=== PATIENT | male | born 1985 | race Caucasian/White ===

== ENCOUNTER 2023-03-28 09:37 | Emergency (ER) | payer OTHER, SELFPAY ==
--- NOTE | ~2023-03-28 | XR_ITS ---
EXAMINATION: XR chest 1V portable 03/28/2023 10:06 INDICATION: Chest pain PROCEDURE: AP portable chest COMPARISON: No prior studies for comparison. FINDINGS: The lungs are clear. The cardiomediastinal silhouette is within normal limits. There are no pleural effusions. There is no pneumothorax suspected. IMPRESSION: 1: NO ACUTE CARDIOPULMONARY DISEASE. Reviewed, dictated and finalized at location B. TESTER
[2023-03-28 09:41] VITALS: BP 155/97; PULSE 64; RESP 16; TEMP 36.6; O2SAT 100
--- NOTE | 2023-03-28 09:44 | ECG_ITS ---
Measurements Intervals [place] Rate: 53 P: 62 TN: 169 QRS: 76 QRSD: 108 T: 47 QT: 400 QTc: 377 Interpretive Statements SINUS BRADYCARDIA WITH SINUS ARRHYTHMIA NO PREVIOUS ECG AVAILABLE FOR COMPARISON Electronically Signed On 03-28-2023 12:09:01 DIP STAND LOADER by Sherice Masters M.D.
[2023-03-28 09:50] VITALS: PULSE 61
[2023-03-28] MEDS: ASPIRIN 81 MG CHEWABLE TABLET 324 MG PO (09:55)
[2023-03-28 09:56] LABS: Basophils Absolute Auto 0.1 K/mm3 (0.0-0.1); Basophils Percent Auto 1.3 % (0.2-1.2); Eosinophils Absolute Auto 0.5 K/mm3 (0-0.3); Eosinophils Percent Auto 8.8 % (0-4.4); Hemoglobin 15.7 g/dL (14.0-18.0); Immature Granulocyte Absolute 0.01 K/mm3 (0.00-0.031); Immature Granulocyte Percent A 0.2 % (0-0.5); Lymphocytes Absolute Auto 1.53 K/mm3 (0.9-3.2); Lymphocytes Percent Auto 29.1 % (18.3-44.2); Mean Corpuscular HGB Conc 33.4 g/dl (32-36); Mean Corpuscular Hemoglobin 28.5 pg (26-34); Mean Corpuscular Volume 85.5 fl (80-100); Mean Platelet Volume 9.2 fl (7.4-10.4); Monocytes Absolute Auto 0.3 K/mm3 (0.1-0.6); Monocytes Percent Auto 5.9 % (2.6-8.5); Neutrophils Absolute Auto 2.9 K/mm3 (1.3-6.7); Neutrophils Percent Auto 54.7 % (45.5-73.1); Platelet Count Result 229 k/mm3 (150-375); Red Cell Distribution Width 12.1 % (11.5-14.5); White Blood Count 5.3 K/mm3 (4.5-10.0)
--- NOTE | 2023-03-28 10:03 | ED.CHESTPAIN ---
HPI - Chest Pain General Chief Complaint: Chest Pain Stated Complaint: had a heart attack this morning Time Seen by Provider: 03/28/23 09:43 History of Present Illness HPI narrative: 37-year-old male presenting to the emergency department for evaluation of chest pain. Patient reports that he woke up this morning with intense substernal chest pain that lasted about 15 seconds. Patient states as the pain was resolving it did radiate to his bilateral jaws. Patient reports over the next 15-20 minutes he did have some mild chest aching that ultimately resolved. Patient reports when he was ambulating he did have some associated lightheaded and dizziness. Patient denies any current chest pain. patient also does describe multiple food allergies and intermittent esophageal spasm. Patient states he does not often follow-up with physicians but states he has no prior history of coronary artery disease. Patient reports no exertional chest pain when working out. Patient has no prior history of PE or DVT. Related Data Allergies Allergy/AdvReac Type Severity Reaction Status Date / Time No Known Allergies Allergy Verified 03/28/23 09:50 Review of Systems Review of Systems: All systems reviewed & are unremarkable except as noted in HPI and below Exam Narrative: APPEARANCE: Well appearing, no pain, no distress, well-nourished. HEAD: normocephalic, atraumatic. EYES: PERRLA/EOMI, conjunctivae clear. NOSE: Normal no drainage EARS:TMS clear with good light reflex. THROAT: Pharynx clear, no exudate. NECK: Supple. No adenopathy, no masses. RESPIRATORY: Airway patent, respirations nonlabored. Clear to auscultation bilaterally, no rales, rhonchi, wheezing. CARDIOVASCULAR: Regular rate and rhythm without murmurs rubs or gallops. ABDOMINAL: Soft, nontender, nondistended, normal bowel sounds MUSCULOSKELETAL: Moves all extremities. Strength/ROM intact, No edema, No calf tenderness. NEURO: Alert. Cranial nerves II through XII intact. Grossly intact SKIN: Warm, dry. Normal Color Course Course Emergency Course: 57-year-old male presenting to the ED for evaluation of substernal chest pain. Patient is afebrile with no leukocytosis and a stable hemoglobin. Patient's D-dimer was negative. Patient had negative serial troponins. No significant abnormalities on his CMP. Chest x-ray shows no acute cardiopulmonary abnormality. EKG showed sinus bradycardia with sinus arrhythmia with no evidence for acute STEMI. patient describes symptoms that sound like eosinophilic esophagitis. The patient has no significant cardiac history patient had negative serial EKGs and negative serial troponins. Patient was updated on the results of his workup patient was comfortable the plan for discharge and close follow-up with primary care physician for additional outpatient cardiac testing and with GI for further workup. Vital Signs Vital signs: Vital Signs Temperature 97.9 F 03/28/23 09:41 Pulse Rate 64 03/28/23 09:41 Respiratory Rate 16 03/28/23 09:41 Blood Pressure 155/97 H 03/28/23 09:41 Pulse Oximetry 100 03/28/23 09:41 Temperature 97.9 F 03/28/23 09:41 Pulse Rate 58 L 03/28/23 13:47 Respiratory Rate 19 03/28/23 13:47 Blood Pressure 130/79 03/28/23 13:47 Pulse Oximetry 97 03/28/23 13:47 MDM - Chest Pain Differential Diagnosis Differential diagnosis: Likely pneumothorax, unstable angina pectoris, atypical chest pain, costochondritis, chest pain, biliary colic and other Lab Data Attestation: I reviewed the patient's lab results. 03/28/23 09:52 03/28/23 09:52 Labs: Lab Results 03/28/23 03/28/23 Range/Units 09:52 12:39 WBC 5.3 (4.5-10.0) K/mm3 RBC 5.50 (4.6-6.20) M/mm3 Hgb 15.7 (14.0-18.0) g/dL Hct 47.0 (42.0-52.0) % MCV 85.5 (80-100) fl MCH 28.5 (26-34) pg MCHC 33.4 (32-36) g/dl RDW 12.1 (11.5-14.5) % Plt Count 229 (150-375) k/mm3 MPV
[2023-03-28 10:07] LABS: Alanine Aminotransferase 25 U/L (6-50); Albumin Level 4.6 g/dL (3.5-5.1); Alkaline Phosphatase 65 U/L (38-126); Anion Gap 7 mmol/L (8-16); Aspartate Amino Transferase 33 U/L (17-59); Bilirubin,Total 0.9 mg/dL (0.2-1.3); Blood Urea Nitrogen 16 mg/dL (9-20); Carbon Dioxide 31 mmol/L (22-30); Chloride 102 mmol/L (98-107); Estimated CRCL calculation 85 ml/min; Estimated Glomerular Filt Rate > 60; Glucose 94 mg/dL (65-110); Potassium 4.2 mmol/L (3.4-5.0); Sodium 140 mmol/L (137-145)
[2023-03-28 10:18] LABS: Troponin I < 0.012 ng/mL (0.000-0.034)
[2023-03-28 10:45] LABS: D Dimer < 0.27 ug/mL (<0.48)
[2023-03-28 11:04] VITALS: PULSE 61; RESP 12; O2SAT 98
[2023-03-28 12:06] VITALS: BP 119/68; PULSE 51; RESP 12; O2SAT 100
[2023-03-28 13:05] LABS: Troponin I < 0.012 ng/mL (0.000-0.034)
[2023-03-28 13:13] VITALS: BP 130/79; PULSE 54; RESP 17; O2SAT 99
--- NOTE | 2023-03-28 13:21 | ECG_ITS ---
Measurements Intervals [place] Rate: 50 P: 51 ID: 160 QRS: 77 QRSD: 100 T: 40 QT: 424 QTc: 389 Interpretive Statements SINUS BRADYCARDIA NO PREVIOUS ECG AVAILABLE FOR COMPARISON Electronically Signed On 03-28-2023 15:07:44 TIPPLE OILER by Jerry Garrison M.D.
[2023-03-28 13:47] VITALS: BP 130/79; PULSE 58; RESP 19; O2SAT 97
== END 2023-03-28 13:48 | disposition home or self-care (01) ==
PROVIDERS: Emergency Provider Emergency Medicine
DX: R07.2 Precordial pain (principal); K22.4 Dyskinesia of esophagus; R00.1 Bradycardia, unspecified
CPT/HCPCS: 36415; 71045; 80053; 84484; 85025; 85380; 93005; 99284; A9270

== ENCOUNTER 2023-05-23 07:02 | Outpatient (NON) | payer OTHER, SELFPAY | END 2023-05-23 07:03 | disposition home or self-care (01) | PROVIDERS: Visit Provider Internal Medicine Gastroenterology | DX: T78.1XXA Other adverse food reactions, not elsewhere classified, initial encounter (principal) | CPT/HCPCS: 88305 ==

== ENCOUNTER 2023-05-23 07:17 | Day surgery (SDC) | payer OTHER, SELFPAY ==
[2023-05-11 15:27] VITALS: BMI 27.8
[2023-05-14 09:53] VITALS: BMI 26.4
[2023-05-23 08:45] VITALS: BP 118/77; PULSE 69; RESP 16; TEMP 36.3; O2SAT 98; BMI 27.8
[2023-05-23] MEDS: LACTATED RINGERS 1,000 ML 150 ML IV CONT (09:03)
--- NOTE | 2023-05-23 09:16 | P.HP_ITS ---
History of Present Illness History of Present Illness Consent: Risks, benefits, and alternatives have been discussed and questions answered. Patient agrees to proceed with procedure. Chief complaint: Other Chest Pain, Gerd w/o Esophagitis Narrative: Moncho Yoder is a 37 year old male presents for EGD. Patient reports having had chest pain since several months ago that occurred on 1 occasion. This prompted him to go to the ER. The ER doctor recommended an EGD. Patient denies any dysphagia. He has occasional discomfort after eating fruits and vegetables. On occasion is described his mouth swelling. He feels substernal discomfort. Most recently has resolved 20mg p.o. daily. He is uncertain if this is alleviated the pain as he now voids fruits and vegetables. He has not seen an body straightener but does not have a primary care doctor. EGD exclude esophagitis. Review of Systems Review of Systems: Review of systems noncontributory. [facility] Past Medical History Medical History (Updated 05/09/23 @ 11:03 by Darlene Calvo APRN) Atypical chest pain Gastrointestinal food sensitivity GERD (gastroesophageal reflux disease) Social History Social History Smoking status: Never smoker Alcohol intake: current Substance use: never Substance use type: does not use Living arrangements: with family Spiritual care concerns: No Meds Home Medications and Allergies Home Medications Medication Instructions Recorded Confirmed Type omeprazole 20 mg capsule,delayed 20 mg PO DAILY 14 days #14 caps 03/28/23 05/23/23 Rx release Allergies Allergy/AdvReac Type Severity Reaction Status Date / Time No Known Allergies Allergy Verified 05/23/23 08:37 Vital Signs Vital Signs - 24 hr 05/23/23 08:45 Temperature 97.3 F L Pulse Rate 69 Respiratory Rate 16 Blood Pressure 118/77 Pulse Oximetry 98 Oxygen Delivery Room Air Exam Narrative: Exam reveals patient to be alert. Vital signs stable. HEENT exam is unremarkable. Patient is anicteric. Lungs are clear to auscultation and to percussion. Heart is without murmur or extra sounds. Abdominal exam bowel sounds are present soft nontender with no hepatosplenomegaly. Assessment and Plan Assessment and plan (1) Atypical chest pain: Code(s): R07.89 - Other chest pain Status: Acute Assessment and Plan: Patient has atypical chest pain. His uncertain if this is related to GE reflux. Patient is currently on a trial of omeprazole. EGD will formed as requested but patient has already been treated with PPI endoscopy. Patient is concerned about food allergies and I would recommend get established with primary care doctor and perhaps the an body straightener (2) Gastrointestinal food sensitivity: Code(s): T78.1XXA - Other adverse food reactions, not elsewhere classified, initial encounter Status: Acute Assessment and Plan: It has been advised that patient see an body straightener because of concerns over food allergies. I have informed the patient this is unusual and atypical but would be best tested by an body straightener.
--- NOTE | 2023-05-23 09:18 | P.PNAN_ITS ---
Anes - Initial Pre Proc Eval Procedure: Operation Date: 05/23/23 10:00 Proposed Procedures p Esophagogastroduodenoscopy - Marty Marie MD Date/Time: 05/23/23 09:18 Surgeon: Marty Marie MD Pre Op Diagnosis: Other Chest Pain, Gerd w/o Esophagitis Patient Data Age: 37 Gender: M Height: 1.8 m Weight: 90.6 kg Last Vital Signs Temp 36.3 C L 05/23/23 08:45 Pulse 69 05/23/23 08:45 Resp 16 05/23/23 08:45 BP 118/77 05/23/23 08:45 Pulse Ox 98 05/23/23 08:45 O2 Del Method Room Air 05/23/23 08:45 Allergies Allergy/AdvReac Type Severity Reaction Status Date / Time No Known Allergies Allergy Verified 05/23/23 08:37 Home Medications Medication Instructions Recorded Confirmed Type omeprazole 20 mg capsule,delayed 20 mg PO DAILY 14 days #14 caps 03/28/23 05/23/23 Rx release Patient hx anesthesia problems: none Family hx anesthesia problems: none Results Review: All pre-operative results and documents have been reviewed as part of the pre- operative evaluation. [facility] Past Medical History Medical History (Updated 05/09/23 @ 11:03 by Darlene Calvo, NEVA) Atypical chest pain Gastrointestinal food sensitivity GERD (gastroesophageal reflux disease) Social History Social History Smoking status: Never smoker Alcohol intake: current Substance use: never Substance use type: does not use Living arrangements: with family Spiritual care concerns: No Anes - Eval Final PreProcedure Day of Procedure 05/23/23 09:18 Patient weight: overweight Heart: regular rate and rhythm Lungs: clear to auscultation Airway: Mallampati scale class II Neurological: alert and oriented Last oral intake: >/= 8 hours ASA classification: II Emergent: no Anesthetic plan: proceed Anesthesia type and monitoring: general GIVS and standard monitoring Results Review: All pre-operative results and documents have been reviewed as part of the pre- operative evaluation. Informed Consent: The patient's anesthetic plan and its attendant risks and benefits were discussed with the patient/family/POA. Questions were solicited and answers provided to the satisfaction of the patient/family/POA.
[2023-05-23 10:05] VITALS: BP 101/70; PULSE 73; RESP 16; O2SAT 98
[2023-05-23 10:15] VITALS: BP 100/71; PULSE 80; RESP 16; O2SAT 99
[2023-05-23 10:25] VITALS: BP 117/75; PULSE 76; RESP 16; O2SAT 99
--- NOTE | 2023-05-23 11:24 | WPDANESPN ---
Anes - Prog Note Post-Op Date/Time: 05/23/23 11:24 Cardiovascular status: normal Respiratory status: normal Airway patency: baseline Mental status: baseline Post-Op hydration status: normal Vital Signs: Last Vital Signs Temp 36.3 C L 05/23/23 08:45 Pulse 76 05/23/23 10:25 Resp 16 05/23/23 10:25 BP 117/75 05/23/23 10:25 Pulse Ox 99 05/23/23 10:25 O2 Del Method Room Air 05/23/23 10:25 Pain Score (VAS): 0 I/O: Intake & Output 05/22/23 05/23/23 05/23/23 23:59 07:59 15:59 Intake Total 700 Balance 700 Post-procedural complaints: none Patient Feedback: Patient satisfied with anesthetic care. Other Findings: Patient vital signs back to baseline. Patient denies nausea and vomiting. Patient's pain under control. Patient OK for discharge.
== END 2023-05-23 10:45 | disposition home or self-care (01) ==
PROVIDERS: Visit Provider Internal Medicine Gastroenterology
PROC: 0DJ08ZZ Inspection of Upper Intestinal Tract, Via Natural or Artificial Opening Endoscopic (ICD-10-PCS; CPT 43235; principal; 2023-05-23 10:00)
DX: R07.89 Other chest pain (principal)
CPT/HCPCS: 43239

== ENCOUNTER 2024-06-30 10:58 | Outpatient (CLI) | payer OTHER, SELFPAY ==
--- NOTE | ~2024-06-30 | XR_ITS ---
XR knee RT min 4V Ordering provider: Michel Narayan DO History: . M17.0 - Bilateral primary osteoarthritis of knee . Comparison: None. FINDINGS: BONES: No acute fracture or dislocation. JOINT SPACES: Normal. SOFT TISSUES: Normal. IMPRESSION: No acute osseous abnormality right knee. Reviewed, dictated and finalized at location A.
--- NOTE | ~2024-06-30 | XR_ITS ---
XR knee LT min 4V Ordering provider: Michel Narayan DO History: . M17.0 - Bilateral primary osteoarthritis of knee . Comparison: None. FINDINGS: BONES: No acute fracture or dislocation. JOINT SPACES: Normal. SOFT TISSUES: Ossification in the left soft tissues adjacent to the distal femur. IMPRESSION: No acute osseous abnormality left knee. Myositis ossificans seen in the distal femur area on the left side. Proper imaging of the femur is ad vised for confirmation Reviewed, dictated and finalized at location A. IMPRESSION: No acute osseous abnormality left knee. Myositis ossificans seen in the distal femur area on the left side. Proper imag ing of the femur is advised for confirmation
== END 2024-06-30 10:59 | disposition home or self-care (01) ==
PROVIDERS: PCP Internal Medicine; Visit Provider Internal Medicine
DX: M17.0 Bilateral primary osteoarthritis of knee (principal)
CPT/HCPCS: 73564

== ENCOUNTER 2024-07-16 09:20 | Outpatient (CLI) | payer OTHER, SELFPAY ==
--- NOTE | ~2024-07-16 | MR_ITS ---
EXAMINATION: MR knee RT wo con DATE: 07/16/2024 09:46 INDICATION: Primary osteoarthritis of the right knee TECHNIQUE: Magnetic resonance imaging (MRI) of the right knee was performed without intravenous contr ast. Sequences included coronal PD-weighted FSE, coronal PD-weighted FS FSE, sagittal T2-weighted FS E, sagittal PD-weighted FS FSE and axial PD weighted fat saturated FSE. COMPARISON: None. FINDINGS: Medial compartment: Complex medial meniscal tear which involves the superior and inferior articular surfaces at a middle thirds of the body and posterior horn. There are some shallow chondral surface irregularity along the central weightbearing medial femoral condyle. Lateral compartment: Lateral meniscus is normal. Articular cartilage is normal. Patellofemoral compartment: Partial-thickness chondral ulceration and deep fissuring without degenerative subchondral changes at the medial half of the lateral trochlea, the trochlear groove and at the inferior aspect of the media l trochlea. Patellar cartilage is normal. Ligaments and tendons: Anterior and posterior cruciate ligaments are normal. The medial collateral ligament and fibular xander ateral ligament complex are normal. The extensor mechanism is normal. The visualized medial and later al hamstring tendons as well as the iliotibial band are normal. Fluid: Physiologic amount of fluid in the joint space. No loose osteochondral bodies identified. Osseous/other: Normal marrow signal. No fracture or pathologic marrow replacing process. IMPRESSION: 1. Complex medial meniscal tear. 2. 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 2. Mild medial compartment osteoarthritis with moderate grade chondromalacia along the central weight bearing medial femoral condyle. Reviewed, dictated and finalized at location B. IMPRESSION: 1. Complex medial meniscal tear. 2. Mild osteoarthritis in the patellofemoral compartment with moderate to high- grade chondromalacia in the trochlea. 2. Mild medial compartment osteoarthritis with moderate grade chondromalacia al alan the central weightbearing medial femoral condyle.
== END 2024-07-16 09:21 | disposition home or self-care (01) ==
LOC: GOSHIMG 09:20
PROVIDERS: PCP Internal Medicine; Visit Provider Internal Medicine
DX: M17.0 Bilateral primary osteoarthritis of knee (principal); S83.231A Complex tear of medial meniscus, current injury, right knee, initial encounter; X58.XXXA Exposure to other specified factors, initial encounter
CPT/HCPCS: 73721

== ENCOUNTER 2025-02-24 16:02 | Outpatient (CLI) | payer OTHER, SELFPAY ==
--- OUTSIDE RECORDS SUMMARY | 2023-10-06 15:30 | XMS_ITS ---
Author Organization [facility] [employer] [facility] [place] ([address]) Address [address] [facility] [address] [place] [address] Care Team Providers Care Change Management Director Name Role Phone Michel Narayan Primary Care Provider Unavailab le Loly Oneal Unavailable [phone] ZZ-Migration, Provider Unavailable Unavailab le [facility]ISIT [facility] Encounter Medications Medication SIG (Take, Route, Frequency, Duration) Notes Start Date End Date Status Naomi Allergy 60 MG 1 tab(s) orally 2 times a day Active EPINEPHrine 0.3 MG DIRECTED INTRAMUSCULARLY ONCE *Please review and pick correct strength-formulati on from Medispan options. If intended option is not shown, discontinue and re-order from Quick Search* Active Vitamin D3 1250 MCG 1 CAP(S) ORALLY ONCE A WEEK *Please review and pick correct strength-formulati on from Medispan options. If intended option is not shown, discontinue and re-order from Quick Search* Active NASAL WASHES N/A DIRECTED INTRANASALLY NEEDED; Duration: 30 DAYS *Please review for potential replacement for e-prescription and drug interaction check* 09/12/2023 Active Encounters Encounter Location Date Provider Diagnosis MEG - [address] [place] [address] 10/06/2023 Provider ZZ-Migration Allergic rhinitis due to pollen J30.1 and Other adverse food reactions, not elsewhere classified, initial encounter T78.1XXA Assessments Encounter Date Diagnosis (ICD Code) Assessment Notes Treatment Notes Treatment Clinical Notes Section Notes 10/06/2023 Allergic rhinitis due to pollen (ICD-10 - J30.1) 10/06/2023 Other adverse food reactions, not elsewhere classified, initial encounter (ICD-10 - T78.1XXA) Plan Of Treatment Medication Medication Name Sig Start Date Stop Date Notes Naomi Allergy 60 MG 1 tab(s) orally 2 times a day EPINEPHrine 0.3 MG DIRECTED INTRAMUSCULARLY ONCE *Please review and pick correct strength-formulation from Medispan options. If intended option is not shown, discontinue and re-order from Quick Search* NASAL WASHES N/A DIRECTED INTRANAS ALLY NEEDED; Duration: 30 DAYS 09/12/2023 *Please review for potential replacement for e-prescription and drug interaction check* Progress Notes * Moncho LANGDOB:1985 (39 yo M)Acc No.[id number]:10/06/2023 Patient: Moncho RENTERIA Provider: Amarjit Bob :1985 A ge:38 Y S ex:Male Date:10/06/2023 Address:[address] [place] [address] , [facility] Pcp:Michel Narayan Subjective: * Chief Complaints: * 1 . [facility] To Med[facility]pan Conversion Encounter. * Medical History: * Medications: T aking Vitamin D3 1250 MCG CAPSULE 1 CAP(S) ORALLY ONCE A WEEK , Notes to Pharmacist: *Please review and pick correct strength-formulation from Medispan options. If intended option is not shown, discontinue and re-order from Quick Search* Objective: * Vitals: Assessment: * Assessment: 1. A llergic rhinitis due to pollen - J30.1 (Primary) 2 . O ther adverse food reactions, not elsewhere classified, initial encounter - T78.1XXA Plan: * Treatment: 2. O ther adverse food reactions, not elsewhere classified, initial encounter Continue EPINEPHrine KIT, 0.3 MG, DIRECTED, INTRAMUSCULARLY, ONCE, Notes to Pharmacist: *Please review and pick correct strength-formulation from Medispan options. If intended option is not shown, discontinue and re-order from Quick Search*. * Billing Information: * Visit Code: * Procedure Codes: * Electronic signature of Dilip DE JESUS-Migration on 02/24/2025 at 04:49 PM USPS LETTER CARRIER Sign off status: Pending * Provider: Amarjit Bob Date: 0 10/06/2023 Generated for Juan Pablo yusuf/Sharmila/Jacob on: 1 04/26/2024 04:49 PM USPS LETTER CARRIER
[2025-02-24 16:46] LABS: Hematocrit 47.9 % (42.0-52.0); Hemoglobin 16.0 g/dL (14.0-18.0); Immature Granulocyte Percent A 0.5 % (0-0.5); Lymphocytes Absolute Auto 1.76 K/mm3 (0.9-3.2); Mean Corpuscular HGB Conc 33.4 g/dl (32-36); Mean Corpuscular Hemoglobin 28.8 pg (26-34); Mean Corpuscular Volume 86.2 fl (80-100); Nucleated Red Blood Cells Absolute Auto 0.000 K/mm3 (0.0-0.012); Nucleated Red Blood Cells Perc 0.0 % (0.0-0.2); Platelet Count Result 209 k/mm3 (150-375); Red Blood Count 5.56 M/mm3 (4.6-6.20); White Blood Count 6.1 K/mm3 (4.5-10.0)
--- OUTSIDE RECORDS SUMMARY | 2025-02-24 16:50 | XMS_ITS | Clinical Summary ---
Author Organization [facility] Address [address] [place] [address] Care Team Providers Care Casting Machine Operator Helper Name Role Phone No, Physician Primary Care Provider [phone] Allergies No known active allergies Medications benzonatate (TESSALON) 200 mg capsuleIndicati ons:Acute cough Take 1 capsule (200 mg total) by mouth 3 (three) times a day as needed for cough 30 capsule 04/03/2022 Active Active Problems No known active problems Social History Tobacco Use Types Packs/Day Years Used Date Smoking Tobacco: Never Smokeless Tobacco: Never Tobacco Cessation:Counseling Given: Not Answered Personal Safety Answer Date Recorded Getting School Help Needed Not on file 04/26 Sex and Gender Information Value Date Recorded Sex Assigned at Not on file Legal Sex Male 10:25 AM REDIPPER Gender Identity Not on file Sexual Orientation Not on file Last Filed Vital Signs Vital Sign Reading Time Taken Comments Blood Pressure 129/81 04/03/2022 3:59 PM REDIPPER Pulse 88 04/03/2022 3:59 PM REDIPPER Temperature 36.8 C (98.2 F) 04/03/2022 3:59 PM REDIPPER Respiratory Rate 18 04/03/2022 3:59 PM REDIPPER Oxygen Saturation 97% 04/03/2022 3:59 PM REDIPPER Inhaled Oxygen Concentration - - Weight 91.6 kg (202 lb) 04/03/2022 3:59 PM REDIPPER Height 180.3 cm (5' 10.98) 04/03/2022 3:[address] Body Mass Index 28.19 04/03/2022 3:59 PM REDIPPER Plan of Treatment Health Maintenance Due Date Last Done Comments Depression Screening 1985 Hepatitis C Screening 1985 DTaP/Tdap/Td Vaccine (1 - Tdap) 07/01/1994 Varicella Vaccines (1 of 2 - 13+ 2-dose series) 07/01/1996 Hepatitis B Screening 07/01/2001 Regular Well Visit/Exam 18-64 07/01/2001 HPV Vaccines (1 - 3-dose SCD M series) 07/01/2010 Covid-19 Vaccine (2 - 2024-2 6 season) 2024 03/16/2021 Influenza Vaccine (#1) 2024 Pneumococcal vaccine <65 Aged Out No longer eligible based on patient's age to complete this topic Insurance [facility] Care Teams Casting Machine Operator Helper Relationship Specialty Start Date End Date No, Physician PCP - General 12/24/21
--- OUTSIDE RECORDS SUMMARY | 2025-02-24 16:50 | XMS_ITS | Patient Health Record ---
Author Organization [employer] [facility] [place] ([address]) Address [address] [address] Care Team Providers Care Hydraulic Mechanic Name Role Phone Michel Narayan Primary Care Provider Unavailab Loly Ochoa Unavailable [phone] Allergies No Known Allergies Reason For Referral No Information Medications Medication SIG (Take, Route, Frequency, Duration) Notes Start Date End Date Status NAOMI ALLERGY 60 mg 1 tab(s) orally 2 times a day Active VITAMIN D3 1250 mcg 1 cap(s) orally once a week Active EPINEPHRINE 0.3 mg as directed intramuscularly once Active Naomi Allergy 60 MG 1 tab(s) orally [...] e-prescription and drug interaction check* 09/12/2023 Active Social History Tobacco Use: Social History Observation Description Date Details (start date - stop date) Never Smoker NA - NA Tobacco Control (Standard) Question Answer Notes Tobacco use: Nonsmoker Problems Problem Type SNOMED Code ICD Code Onset Dates Problem Status W/U Status Risk Notes Problem Chronic allergic conjunctivitis (12331797) Other chronic allergic conjunctivitis (H10.45) Active confirmed Problem Allergic rhinitis caused by pollen (disorder) (82362513) Allergic rhinitis due to pollen (J30.1) Active confirmed Problem Allergic rhinitis (10905702) Other allergic rhinitis (J30.89) Active confirmed Problem Allergic rhinitis caused by animal hair and dander ([id number]) Allergic rhinitis due to animal (cat) (dog) hair and dander (J30.81) Active confirmed Plan Of Treatment No Information Insurance Providers Payer Name Payer Address Payer Phone Subscriber Number Group Number Insured Name Patient Relationship to Insured Coverage Start Date Coverage End Date [facility] [employer] [address] [address] [place] [address] [id number] Moncho Yoder Self - patient is the insured 4 Medical (General) History Surgical History Surgery Date(Month/Year) Tonsillectomy 1991 Endoscopy 05/2023 Orick teeth removal 2004
[2025-02-24 17:17] LABS: Alanine Aminotransferase 19 U/L (6-50); Albumin Level 4.2 g/dL (3.5-5.1); Alkaline Phosphatase 75 U/L (38-126); Aspartate Amino Transferase 34 U/L (17-59); Bilirubin,Total 0.7 mg/dL (0.2-1.3); Cholesterol 194 mg/dL (0-200); HDL Direct 45 mg/dL; Total Protein 6.8 g/dL (6.3-8.2); Triglycerides 321 mg/dL (<150)
== END 2025-02-24 16:03 | disposition home or self-care (01) ==
LOC: ANHLAB 16:04
PROVIDERS: PCP Internal Medicine; Visit Provider Internal Medicine
DX: Z79.899 Other long term (current) drug therapy (principal)
CPT/HCPCS: 36415; 80061; 80076; 85025